=== PATIENT | male | born 1950 | race Caucasian/White ===

== ENCOUNTER 2017-11-24 09:56 | Outpatient (CLI) | payer MEDICARE ==
--- NOTE | 2017-11-24 11:54 | RAD ---
FOUR VIEWS LUMBAR SPINE: Date: 11-24-17 History: Chronic back pain radiating down the back of the right hip for 4-5 years. FINDINGS: Lumbar pedicles appears intact on frontal imaging. A transitional L6 vertebral body is suspected. At T12-L1 there is disc space narrowing and anterior osteophyte formation. On neutral lateral imaging there is retrolisthesis measuring 3 mm at L1-2 and 6 mm at L2-3. At the L5-6 level there is prominen t disc space narrowing and degenerative endplate change with anterior osteophyte formation. With flex ion, the retrolisthesis at L1-2 is no longer visualized. The retrolisthesis at L2-3 is stable at appr oximately 5 mm. With extension, the retrolisthesis at L1-2 is approximately 6 mm and at L2-3 is appro ximately 7 mm. No acute osseous abnormality. There is multilevel lower lumbar spine facet hypertrophy . There is atherosclerotic calcification of the abdominal aorta. IMPRESSION: Multilevel degenerative change as detailed above. 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 POS: [facility]
--- NOTE | 2017-11-24 12:17 | MRI ---
MRI LUMBAR SPINE: Date: 11/24/17 HISTORY: Back pain. TECHNIQUE: Multiplanar, multisequence noncontrast enhanced MRI lumbar spine obtained. FINDINGS: T12-L1: Unremarkable. L1-2: Disc desiccation is seen. There is irregularity involving the inferior end plate of L1 and superior e nd plate of L2. There is fluid seen in the disc space. There are Modic Type I signal changes in the i nferior end plate of L1 and superior end plate of L2. This may represent possible L1-2 diskitis with end plate osteomyelitis versus disc degenerative changes and secondary Modic edematous changes. There is moderate bilateral neural foraminal narrowing seen. L2-3: There is a mild broad based disc bulge with bilateral facet hypertrophy. The central canal and neural foramen are patent. L3-4: There is a broad based disc bulge with bilateral facet and ligamentum flavum hypertrophy. There is a broad based central disc protrusion which results in mild L3-4 central and lateral recess stenosis. T here is no significant evidence of neural foraminal narrowing. L4-5: There is some disc desiccation seen. There is bilateral facet and ligamentum flavum hypertrophy seen. Moderate bilateral neural foraminal narrowing is seen. Some chronic disc space height loss and anter ior and posterior osteophytes seen at L4-5. L5-S1: Mild facet hypertrophy is seen. The central canal and neural foramen are patent. IMPRESSION: L1-2 disc signal abnormality with end plate edematous changes. Findings concerning for disc degenerat ion versus diskitis with adjacent osteomyelitis. POS: [facility]
== END 2017-11-24 09:57 | disposition home or self-care (01) ==
LOC: SCSMRI 09:56
PROVIDERS: ATTEND Surgery
DX: M47.26 Other spondylosis with radiculopathy, lumbar region (principal); M43.16 Spondylolisthesis, lumbar region; R93.8 Abnormal findings on diagnostic imaging of other specified body structures
CPT/HCPCS: 72120; 72148

== ENCOUNTER 2018-01-29 11:11 | Outpatient (CLI) | payer MEDICARE ==
[2018-01-29 14:07] LABS: Hemoglobin 16.5 g/dL (14.0-18.0); Mean Corpuscular HGB CONC 35.4 g/dL (32.0-36.0); Mean Corpuscular Hemoglobin 33.8 pg (27.0-31.0); Mean Corpuscular Volume 95.4 fL (78.0-98.0); Platelet Count 196 thou/uL (130-400); RBC Distribution Width 11.9 % (11.5-14.5); Red Blood Cell (RBC) Count 4.88 mill/uL (4.70-6.10); White Blood Cell (WBC) Count 6.6 thou/uL (4.8-10.8)
[2018-01-29 14:13] LABS: PTT 27.6 SEC (22.9-36.1); Prothrombin Time 12.9 SEC (12.0-14.7)
[2018-01-29 14:29] LABS: Anion Gap 18 mmol/L (10-20); BUN (Urea Nitrogen) 13 mg/dL (8.4-25.7); Calc. Creatinine Clearance 0 mL/min (70-130); Calcium 10.4 mg/dL (7.8-10.44); Carbon Dioxide 20 mmol/L (23-31); Chloride 106 mmol/L (98-107); Estimated GFR-MDRD 69; Glucose 101 mg/dL (80-115); Potassium 4.3 mmol/L (3.5-5.1); Sodium 140 mmol/L (136-145)
--- NOTE | 2018-01-30 15:15 | EKG ---
Test Reason : Blood Pressure : / mmHG Vent. Rate : 087 BPM Atrial Rate : 087 BPM P-R Int : 176 ms QRS Dur : 084 ms QT Int : 366 ms P-R-T Axes : 054 -07 063 degrees QTc Int : 440 ms Normal sinus rhythm RSR' or QR pattern in V1 suggests right ventricular conduction delay Nonspecific ST and T wave abnormality Left axis deviation Abnormal ECG When compared with ECG of 23-FEB-2016 18:41, ST now depressed in Anterior leads Nonspecific T wave abnormality now evident in Anterior leads Confirmed by APARNA ESCALANTE MD ([id number]) on 01/30/2018 3:15:12 PM Referred By: GENEVA Confirmed By:APARNA ESCALANTE MD
== END 2018-01-29 11:12 | disposition home or self-care (01) ==
LOC: LABBT 11:11
PROVIDERS: ATTEND Surgery
DX: Z01.818 Encounter for other preprocedural examination (principal); M54.16 Radiculopathy, lumbar region; M48.061 Spinal stenosis, lumbar region without neurogenic claudication
CPT/HCPCS: 80048; 85027; 85610; 85730; 93005; 93010

== ENCOUNTER 2018-02-05 10:50 | Day surgery (SDC) | payer MEDICARE ==
[2018-01-29 11:46] VITALS: BMI 31.1
[2018-02-05] MEDS ORDERED: CEFAZOLIN/Water 2 GM/20 ML SYRINGE ONE (12:42)
[2018-02-05] MEDS ORDERED: Thrombin 5000 UNITS/5 ML VIAL ONE (13:59)
[2018-02-05] MEDS ORDERED: Sodium Chloride 0.9% 10 ML ONE (13:59)
[2018-02-05] MEDS ORDERED: Bacitracin Zinc Ointment 30 gm TUBE ONE (13:59)
[2018-02-05] MEDS ORDERED: Ondansetron HCl/PF 4 MG/2 ML Vial ONE (14:26)
[2018-02-05] MEDS ORDERED: Famotidine/PF 20 mg/2ml Vial ONE (15:04)
[2018-02-05] MEDS ORDERED: Fentanyl 100 MCG/2 ML VIAL ONE ×3 (15:04→17:43)
[2018-02-05] MEDS ORDERED: Milk Of Magnesia 30 ML UDCUP PO PRN (17:28)
[2018-02-05] MEDS ORDERED: Mag-Al 1200 mg/1200 mg/30 ML UDCUP PO PRN (17:28)
[2018-02-05] MEDS ORDERED: traMADol HCl 50 MG TAB PO PRN (17:28)
[2018-02-05] MEDS ORDERED: Bisacodyl 10 MG SUPP PR PRN (17:28)
[2018-02-05] MEDS ORDERED: Promethazine HCl 25 MG/ML VIAL IM PRN ×2 (17:28→17:29)
[2018-02-05] MEDS ORDERED: Acetaminophen/Codeine 30-300mg Tablet PO PRN (17:28)
[2018-02-05] MEDS ORDERED: Fleet Enema 133 ML BOT PR PRN (17:28)
[2018-02-05] MEDS ORDERED: Acetaminophen 325 MG TAB PO PRN (17:28)
[2018-02-05] MEDS ORDERED: Ondansetron HCl/PF 4 MG/2 ML Vial IVP PRN (17:29)
[2018-02-05] MEDS ORDERED: Promethazine HCl 25 MG/ML VIAL SLOW IVP PRN (17:29)
[2018-02-05] MEDS: Sodium Chloride 0.9% 1,000 ML IV SCH (18:31)
[2018-02-05] MEDS: tiZANidine HCl 4 MG TAB PO PRN (18:49)
[2018-02-05] MEDS: Gabapentin 300 MG CAP PO SCH (20:02)
[2018-02-05] MEDS: Carvedilol 6.25 MG TAB PO SCH (20:02)
[2018-02-05] MEDS ORDERED: Atorvastatin Calcium 40 MG TAB PO SCH (21:00)
[2018-02-05] MEDS ORDERED: OXcarbazepine 150 MG TAB PO SCH (21:00)
[2018-02-05] MEDS ORDERED: Prazosin HCl 1 MG CAP PO SCH (21:00)
[2018-02-05] MEDS ORDERED: Lisinopril 10 MG TAB PO SCH (21:00)
[2018-02-05] MEDS ORDERED: CEFAZOLIN/Water 2 GM/20 ML SYRINGE SLOW IVP SCH (22:00)
[2018-02-05] MEDS: CEFAZOLIN/Water 2 GM/20 ML SYRINGE SLOW IVP SCH (23:14)
[2018-02-05] MEDS: HYDROcodone/Acetaminophen 7.5/325 mg Tablet PO PRN (23:14)
[2018-02-06] MEDS: Sodium Chloride 0.9% 1,000 ML IV SCH (05:04)
[2018-02-06] MEDS: Carvedilol 6.25 MG TAB PO SCH (07:50)
[2018-02-06] MEDS: CEFAZOLIN/Water 2 GM/20 ML SYRINGE SLOW IVP SCH (07:50)
[2018-02-06] MEDS: Gabapentin 300 MG CAP PO SCH (07:51)
[2018-02-06] MEDS: HYDROcodone/Acetaminophen 7.5/325 mg Tablet PO PRN (08:01)
[2018-02-06] MEDS: tiZANidine HCl 4 MG TAB PO PRN (08:02)
[2018-02-06 08:07] VITALS: BP 115/75; TEMP 98.7
--- NOTE | 2018-02-06 09:20 | PRG ---
DATE OF SERVICE: 02/06/2018 Mr. Ward is postoperative day 1 L4-5 laminectomy. He is doing very well with resolution in his leg pain and an intact neurological exam. We went over intra and postoperative issues, he may be dismiss ed.
--- NOTE | 2018-02-06 09:43 | OP ---
DATE OF PROCEDURE: 02/05/2018 OR: OR #11. WOUND TYPE: Type 1 wound. SURGEON: Jin Sewell M.D. PASSENGER RELATIONS REPRESENTATIVE: Bradford Vidal PA-C. PREPROCEDURE DIAGNOSES: L4-5 stenosis with low back and leg pain. POSTPROCEDURE DIAGNOSES: L4-5 stenosis with low back and leg pain. PROCEDURE: L4-L5 laminectomy, partial facetectomy, foraminotomies over the L4-L5 nerve roots. DESCRIPTION OF PROCEDURE: After informed consent was obtained from the patient, the patient was brou ght to OR 11. Proper patient pause and identification was carried out. He was placed under excellen t endotracheal anesthesia and positioned prone on the OR table. All appropriate points were padded. We identified the L4-L5 dorsal spines, a linear elvi was made over this region. This area was steri scarlett cleansed, prepared and draped. Proper patient pause and identification was carried out. The wo und was then opened with a combination of sharp, monopolar and blunt dissection. The L4-L5 dorsal sp leo lamina were exposed. Localization film confirmed our area of interest and we performed an L4-L5 laminectomy, partial facetectomy, foraminotomies. We had excellent decompression of the common dura l tube and the nerve roots. There was no spinal fluid leak. Hemostasis was maximized throughout. T he wound was then closed in anatomic layers following the sprinkling of vancomycin powder. The patie nt then emerged from anesthesia.
== END 2018-02-06 11:59 | disposition home or self-care (01) ==
LOC: SDC 10:50 → SURG A 17:28 → SDC 02-06 11:59
PROVIDERS: ATTEND Surgery
PROC: 01NB0ZZ Release Lumbar Nerve, Open Approach (ICD-10-PCS; principal; 2018-02-05)
DX: M48.061 Spinal stenosis, lumbar region without neurogenic claudication (principal); Z79.82 Long term (current) use of aspirin; Z79.899 Other long term (current) drug therapy; Z88.1 Allergy status to other antibiotic agents
CPT/HCPCS: 96374; A4216; J0131; J2270; J2405; J3010; J3370; J3490; S0028

== ENCOUNTER 2018-11-09 12:27 | Outpatient (CLI) | payer MEDICARE ==
--- NOTE | 2018-11-09 13:15 | RAD ---
EXAM: 4 views of the cervical spine HISTORY: Neck pain COMPARISON: None FINDINGS: AP, lateral, and flexion/extension views of the cervical spine shows normal height and alig nment of the vertebral bodies without fracture or subluxation. Severe degenerative changes are seen throughout cervical spine with intervertebral disc space narrowing and large osteophytes. No preverte bral soft tissue swelling is seen. Alignment is unchanged with flexion and extension. IMPRESSION: Degenerative changes of cervical spine with unchanged alignment with bending
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
== END 2018-11-09 12:28 | disposition home or self-care (01) ==
LOC: SCSMRI 12:27
PROVIDERS: ATTEND Physician Assistant Surgical
DX: M47.22 Other spondylosis with radiculopathy, cervical region (principal); M48.02 Spinal stenosis, cervical region
CPT/HCPCS: 72050; 72141

== ENCOUNTER 2019-03-09 07:32 | Inpatient (IN) | payer MEDICARE ==
[2019-03-08 12:08] VITALS: BMI 29.8
[2019-03-09 09:15] LABS: Anion Gap 11 mmol/L (10-20); BUN (Urea Nitrogen) 15 mg/dL (8.4-25.7); Calc. Creatinine Clearance 103 mL/min (70-130); Calcium 8.7 mg/dL (7.8-10.44); Carbon Dioxide 25 mmol/L (23-31); Chloride 105 mmol/L (98-107); Estimated GFR-MDRD 79; Glucose 102 mg/dL (80-115); Potassium 3.6 mmol/L (3.5-5.1); Sodium 137 mmol/L (136-145)
[2019-03-09] MEDS ORDERED: Sodium Chloride 0.9% 10 ML ONE (10:29)
[2019-03-09] MEDS ORDERED: Thrombin 5000 UNITS/5 ML VIAL ONE (10:29)
[2019-03-09] MEDS ORDERED: Fentanyl 100 MCG/2 ML VIAL ONE ×3 (11:54→15:43)
[2019-03-09] MEDS ORDERED: PROPOFOL 200 MG/20 ML VIAL ONE (13:55)
[2019-03-09] MEDS ORDERED: Rocuronium Bromide 10 MG/ML (10ML VIAL) ONE (13:55)
[2019-03-09] MEDS ORDERED: Lidocaine 1% PF 5 ML VIAL ONE (13:55)
[2019-03-09] MEDS ORDERED: Ondansetron PF 4 MG/2 ML Vial ONE (13:55)
[2019-03-09] MEDS ORDERED: Glycopyrrolate 0.2 MG/ML 5 ML SYRINGE ONE (13:55)
[2019-03-09] MEDS ORDERED: traMADol HCl 50 MG TAB PO PRN (15:06)
[2019-03-09] MEDS ORDERED: Acetaminophen 325 MG TAB PO PRN (15:06)
[2019-03-09] MEDS ORDERED: Morphine 2 MG/ML SYRINGE SLOW IVP PRN (15:06)
[2019-03-09] MEDS ORDERED: Acetaminophen/Codeine 30-300mg Tablet PO PRN (15:06)
[2019-03-09] MEDS ORDERED: Promethazine HCl 25 MG/ML VIAL SLOW IVP PRN (15:06)
[2019-03-09] MEDS ORDERED: Promethazine HCl 25 MG/ML VIAL IM PRN (15:06)
[2019-03-09] MEDS ORDERED: Bisacodyl 10 MG SUPP PR PRN (15:06)
[2019-03-09] MEDS ORDERED: Fleet Enema 133 ML BOT PR PRN (15:06)
[2019-03-09] MEDS ORDERED: Ondansetron HCl/PF 4 MG/2 ML Vial IVP PRN (15:06)
[2019-03-09] MEDS ORDERED: Ondansetron PF 4 MG/2 ML Vial IVP PRN (15:06)
[2019-03-09] MEDS ORDERED: Milk Of Magnesia 30 ML UDCUP PO PRN (15:06)
[2019-03-09] MEDS ORDERED: Sodium Chloride 0.9% 1,000 ML IV SCH (15:15)
[2019-03-09] MEDS ORDERED: [UNRECOGNIZED DRUG - REMARK] FS SCH (15:30)
[2019-03-09] MEDS ORDERED: HYDROcodone/Acetaminophen 7.5/325 mg Tablet ONE (16:17)
[2019-03-09] MEDS: HYDROcodone/Acetaminophen 7.5/325 mg Tablet PO PRN (20:28)
[2019-03-09] MEDS: OXcarbazepine 150 MG TAB PO SCH (20:29)
[2019-03-09] MEDS: Atorvastatin Calcium 40 MG TAB PO SCH (20:30)
[2019-03-09] MEDS: Carvedilol 6.25 MG TAB PO SCH (20:30)
[2019-03-09] MEDS: Prazosin HCl 1 MG CAP PO SCH (20:31)
[2019-03-09] MEDS ORDERED: ICOSAPENT ETHYL PO SCH (21:00)
[2019-03-09] MEDS ORDERED: Prazosin HCl 1 MG CAP PO SCH (21:00)
[2019-03-09] MEDS: tiZANidine HCl 4 MG TAB PO PRN (21:43)
[2019-03-09] MEDS: CEFAZOLIN 2 GM in Premix Bag 1 BAG IVPB SCH (21:44)
[2019-03-10] MEDS: HYDROcodone/Acetaminophen 7.5/325 mg Tablet PO PRN ×5 (00:36→18:19)
[2019-03-10] MEDS: CEFAZOLIN 2 GM in Premix Bag 1 BAG IVPB SCH ×3 (05:28→20:54)
[2019-03-10] MEDS: Lisinopril 10 MG TAB PO SCH (09:57)
[2019-03-10] MEDS: Multivit, Therapeutic 1 TAB PO SCH (09:57)
[2019-03-10] MEDS: Carvedilol 6.25 MG TAB PO SCH ×2 (09:57→20:51)
[2019-03-10] MEDS: tiZANidine HCl 4 MG TAB PO PRN ×3 (09:57→20:50)
--- NOTE | 2019-03-10 10:15 | PRG ---
DATE OF SERVICE: 03/10/2019 Mr. Ward is postoperative day 1 from C4 to C7 ACDF. He is mobilizing and he has improvement in his arm pain. His drain output has been 80 mL overnight. We will leave this in place and plan to check on him later today with possible dismiss. Neurologically, he is intact. Job ID: [id number]
[2019-03-10] MEDS: Mag-Al 1200 mg/1200 mg/30 ML UDCUP PO PRN ×2 (14:00→20:51)
[2019-03-10] MEDS: Atorvastatin Calcium 40 MG TAB PO SCH (20:51)
[2019-03-10] MEDS: OXcarbazepine 150 MG TAB PO SCH (20:51)
[2019-03-10] MEDS: Prazosin HCl 1 MG CAP PO SCH (20:52)
[2019-03-11] MEDS: HYDROcodone/Acetaminophen 7.5/325 mg Tablet PO PRN ×3 (00:48→09:40)
[2019-03-11] MEDS: Mag-Al 1200 mg/1200 mg/30 ML UDCUP PO PRN (00:53)
[2019-03-11] MEDS: tiZANidine HCl 4 MG TAB PO PRN (04:06)
[2019-03-11] MEDS: CEFAZOLIN 2 GM in Premix Bag 1 BAG IVPB SCH (05:28)
[2019-03-11] MEDS: Multivit, Therapeutic 1 TAB PO SCH (08:29)
[2019-03-11] MEDS: Carvedilol 6.25 MG TAB PO SCH (08:29)
[2019-03-11] MEDS: Lisinopril 10 MG TAB PO SCH (08:31)
[2019-03-11] MEDS ORDERED: Pantoprazole 40 MG VIAL IVP SCH (09:00)
[2019-03-11] MEDS ORDERED: Dexamethasone 4 mg/ml Vial SLOW IVP SCH (09:00)
[2019-03-11 11:54] VITALS: BP 134/66; TEMP 98.4
--- NOTE | 2019-03-11 17:12 | DIS ---
DATE OF ADMISSION: 03/09/2019 DATE OF DISCHARGE: 03/11/2019 This is Bradford Vidal PA-C dictating a report for Jin Sewell MD. DISCHARGE DIAGNOSES: 1. Cervical spondylosis with myelopathy. 2. Cervical radiculopathy. 3. Cervical stenosis. 4. Coronary artery disease. 5. Hyperlipidemia. 6. Depression. 7. Hypertension. 8. Status post coronary artery bypass graft. HOSPITAL COURSE: Mr. Ward was admitted to undergo multilevel anterior cervical diskectomy and fusion with Dr. Sewell. TREVOR drain was placed and the patient's surgery was without complication. He required 2 overnight stays in order for appropriate pain control as well as decrease in his TREVOR drain output. At the time of discharge, the patient had met criteria, was doing well. He had good strength in all the extremities, had been walking unassisted, and again was feeling very good. He had complete resolution of his bilateral upper extremity symptoms. Appropriate the patient education and outpatient followups were provided to the patient, and he and his were very thrilled with his outcome postoperatively with the understanding to call the office with questions or concerns prior to his next followup appointment. Job ID: [id number]
--- NOTE | 2019-03-12 15:18 | OP ---
DATE OF PROCEDURE: 03/09/2019 PREOPERATIVE DIAGNOSIS: Multilevel cervical stenosis with neck and arm symptoms. POSTPROCEDURE DIAGNOSIS: Multilevel cervical stenosis with neck and arm symptoms. PAPER CLEANER: Bradford Vidal PA-C. PROCEDURES PERFORMED: 1. Anterior C4-C5, C5-C6, and C6-C7 diskectomies for decompression of spinal cord nerve roots. 2. Interbody spacer placement for arthrodesis C4-C5, C5-C6, C6-C7 with local bone autograft and allograft for arthrodesis. 3. Anterior cervical plate and screw fixation, C4, C5, C6, and C7. 4. Use of operative microscope for microdissection. DESCRIPTION OF PROCEDURE: After informed consent was obtained from the patient, the patient was brought to the OR. Proper patient, pause, and identification were carried out. He was placed in excellent general endotracheal anesthesia and positioned prone on the OR table. All appropriate points were padded. We identified the right anterior oblique elvi to allow for approach to this anterior cervical spine. This region was sterilely cleansed and draped. Proper patient, pause, and identification were carried out. The wound was then opened with a combination of sharp, monopolar, and blunt dissection. The anterior C4, C5, C6, and C7 segments were exposed following a trajectory that allowed us to go deep to lateral to the tracheoesophageal bundle and medial to the right carotid sheath. We identified the prevertebral layer of deep cervical fascia, and we were able to localize and retract starting at C4-C5. Distraction occurred at C4-C5, and diskectomy was performed with decompression of spinal cord and bilateral C5 nerve roots. The endplates were prepared, and interbody spacer packed with graft was placed for the initiation of arthrodesis. At C4-C5, we then released distraction and did the same thing at C5-C6 with diskectomy and decompression of spinal cord in the C6 nerve roots bilaterally and preparation of the endplates and placement of spacer packed with graft. We then did the same thing at C6-C7 with diskectomy and decompression of spinal cord and C7 nerve roots and preparation of the endplates. Copious irrigation occurred. We then removed the microscope and anterior cervical plate and screw fixation. Final tightening occurred at C4, C5, C6, and C7. We were satisfied with our construct. Copious irrigation occurred throughout as did maximize hemostasis. The wound was then closed in anatomic layers over drain following copious irrigation. The patient emerged from anesthesia. Job ID: [id number]
== END 2019-03-11 12:06 | disposition home or self-care (01) | DRG 472 ==
LOC: SURG A 07:32 → 2SW 15:59
PROVIDERS: ADMIT Surgery; ATTEND Surgery
PROC: 0RG20A0 Fusion of 2 or more Cervical Vertebral Joints with Interbody Fusion Device, Anterior Approach, Anterior Column, Open Approach (ICD-10-PCS; principal; 2019-03-09)
PROC: 0RB30ZZ Excision of Cervical Vertebral Disc, Open Approach (ICD-10-PCS; 2019-03-09)
DX: M48.02 Spinal stenosis, cervical region (principal); M47.12 Other spondylosis with myelopathy, cervical region; M54.12 Radiculopathy, cervical region; I25.10 Atherosclerotic heart disease of native coronary artery without angina pectoris; E78.5 Hyperlipidemia, unspecified; F32.9 Major depressive disorder, single episode, unspecified; I10 Essential (primary) hypertension; Z95.1 Presence of aortocoronary bypass graft; Z88.8 Allergy status to other drugs, medicaments and biological substances
CPT/HCPCS: 36415; 76000; 80048; C1713; C1776; C9113; J0131; J0690; J1100; J2001; J2405; J2704; J3010; J3490

== ENCOUNTER 2019-05-03 13:30 | Outpatient (CLI) | payer MEDICARE ==
--- NOTE | 2019-05-03 15:24 | RAD ---
CERVICAL SPINE SERIES THREE VIEWS: HISTORY: Follow up of surgery. FINDINGS: The patient has undergone an anterior cervical fusion with plate and screws extending from C4 to C7. Markers of the disk implant are within the confines of the disk level. Moderate disk narrowing is see n at C3-C4. Prominent carotid bulb calcifications incidentally noted. IMPRESSION: Postoperative changes of the spine. POS: [facility]
== END 2019-05-03 13:31 | disposition home or self-care (01) ==
LOC: TBSIIMAG 13:30
PROVIDERS: ATTEND Surgery
DX: M54.2 Cervicalgia (principal); Z98.890 Other specified postprocedural states
CPT/HCPCS: 72040